=== PATIENT | male | born 1995 | race Caucasian/White ===

== ENCOUNTER 2017-03-01 08:31 | Emergency (ER) | payer OTHER ==
[2017-03-01] MEDS ORDERED: NKA (09:02)
[2017-03-01 09:35] LABS: URINE APPEARANCE CLEAR; URINE BILIRUBIN NEGATIVE (NEG); URINE BLOOD NEGATIVE (NEG); URINE COLOR YELLOW; URINE GLUCOSE (UA) NEGATIVE (NEG); URINE KETONE NEGATIVE (NEG); URINE LEUKOCYTE ESTERASE NEGATIVE (NEG); URINE NITRITE NEGATIVE (NEG); URINE PROTEIN NEGATIVE (NEG)
[2017-03-01 09:39] LABS: BASO % 0.3 % (0-2); EOS % 7.5 % (0-7); EOSINOPHIL ABSOLUTE COUNT 0.4 tho/cmm (0.0-0.7); HCT-HEMATOCRIT 41.7 % (36.0-53.5); HGB-HEMOGLOBIN 15.3 gm/dl (13.5-17.0); LYMPH % 34.6 % (20-45); MCH (MEAN CORPUSCULAR HGB) 30.8 pg (28.0-32.0); MCV (MEAN CELL VOLUME) 83.9 fl (82.0-96.0); MEAN PLATELET VOLUME 10.5 cmc (9.4-12.4); MONO % 8.7 % (0-12); MONOCYTE ABSOLUTE COUNT 0.5 tho/cmm (0.0-1.2); NEUTROPHIL ABSOLUTE COUNT 2.8 tho/cmm (1.6-8.0); NEUTROPHIL-AUTOMATED 2.8 tho/cmm (1.6-8.0); NEUTROPHILS % 48.9 % (40-80); PLATELET COUNT 165 tho/cmm (150-450); RED BLOOD COUNT 4.97 mil/cmm (4.40-5.70); RED CELL DISTRIBUTION WIDTH 12.3 % (12.4-16.4); WHITE BLOOD COUNT 5.8 tho/cmm (4.0-10.0)
[2017-03-01 09:44] LABS: MCHC MEAN CORPUSCULAR HGB CONC 36.7 % (32.0-36.0)
[2017-03-01 10:00] LABS: ALB/GLOB RATIO 1.3 (0.8-2.0); ALBUMIN 4.3 g/dl (3.5-5.0); ALCOHOL (ETOH) <10 mg/dl (<10); ALKALINE PHOSPHATASE 53 U/L (33-138); ALT/SGPT 26 U/L (12-78); ANION GAP 12 mmol/L (0-20); AST/SGOT 21 U/L (10-40); BILIRUBIN,TOTAL 0.8 mg/dl (0.0-1.5); BLOOD UREA NITROGEN 17 mg/dl (6-24); CALCIUM 8.7 mg/dl (8.5-10.5); CARBON DIOXIDE-VENOUS 26 mmol/L (22-32); CHLORIDE 106 mmol/l (96-110); CREATININE 1.04 mg/dl (0.60-1.30); GLUCOSE 85 mg/dL (70-110); POTASSIUM 4.2 mmol/L (3.7-5.1); SODIUM 140 mmol/L (135-145); eGFR VALUE FOR BLACK >90 mL/Min
[2017-03-01 10:01] LABS: ACETAMINOPHEN LEVEL <2.1 ug/ml (10-30); SALICYLATE <2.8 mg/dl (2.8-20)
== END 2017-03-01 10:47 ==
LOC: EDMED 08:31
PROVIDERS: Emergency Medicine
DX: F19.10 Other psychoactive substance abuse, uncomplicated (principal)
CPT/HCPCS: G0480